=== PATIENT | male | born 1985 | race Caucasian/White ===

== ENCOUNTER → 2021-03-31 15:26 | Outpatient (BNVA) | payer OTHER, SELFPAY | PROVIDERS: Visit Provider Nurse Practitioner Family | DX: Z20.822 Contact with and (suspected) exposure to COVID-19 (principal) | CPT/HCPCS: 87635 ==

== ENCOUNTER → 2021-05-04 15:32 | Outpatient (BNVA) | payer SELFPAY | PROVIDERS: Visit Provider Nurse Practitioner Family | DX: S92.521A Displaced fracture of middle phalanx of right lesser toe(s), initial encounter for closed fracture (principal); W22.8XXA Striking against or struck by other objects, initial encounter; M79.674 Pain in right toe(s); G89.29 Other chronic pain | CPT/HCPCS: 73630 ==

== ENCOUNTER → 2021-05-12 13:47 | Outpatient (BNVA) | payer SELFPAY | PROVIDERS: Referring Provider Nurse Practitioner Family; Visit Provider Podiatrist Foot & Ankle Surgery | DX: M79.671 Pain in right foot (principal) | CPT/HCPCS: 73630 ==

== ENCOUNTER 2023-10-03 09:01 | Emergency (ER) | payer SELFPAY ==
[2023-10-03 09:06] VITALS: BP 151/81; PULSE 98; RESP 18; TEMP 36.8; O2SAT 98; BMI 24.3
[2023-10-03 09:40] LABS: Basophils # 0.1 10^3/uL (0.0-0.1); Basophils % 0.7 %; Eosinophils # 0.2 10^3/uL (0.0-0.8); Eosinophils % 2.5 %; Hematocrit 43.6 % (37-53); Lymphocytes # 2.2 10^3/uL (0.8-4.8); Mean Corpuscular HGB Conc 33.3 g/dL (30-55); Mean Corpuscular Hemoglobin 30.7 pg (27-33); Mean Corpuscular Volume 92.4 fl (82-101); Monocytes # 0.8 10^3/uL (0.2-0.9); Monocytes % 8.9 %; Neutrophils # 5.25 10^3/uL (1.8-7.7); Neutrophils % 61.5 %; Nucleated Red Blood Cells % 0 %; Platelet Count 308 10^3/cmm (157-399); Red Blood Count 4.72 10^6/uL (3.85-5.65); Red Cell Distribution Width 13.6 % (12.1-15.1); White Blood Count 8.53 10^3/uL (3.29-11.43)
[2023-10-03 09:48] LABS: Add Urine Microscopic? NO; Charge for UA Resulting for Rev
--- NOTE | 2023-10-03 09:54 | ED_ITS ---
HPI - Back Pain/Injury 2 General: Chief Complaint: Back Pain/Injury Stated Complaint: abd pain Time Seen by Provider: 10/03/23 09:03 Source: patient Mode of arrival: ambulatory History of Present Illness: 37-year-old male presents emergency room with right flank pain. He denies any dysuria urgency or frequency pain is worse when he twists or bends. He denies any hematuria no fever sweats or chills. No precipitating trauma MD elicited complaint: back pain PFSH ED 2 PFSH: Social History Smoking and tobacco/nicotine status: current every day tobacco/nicotine user cigarettes Packs smoked per day: 0.5 Years cigarettes smoked: 20 Second hand smoke exposure: Yes Alcohol intake: current Alcohol intake frequency: holidays/special occasions only Substance/Drug Use: never Lives independently: Yes Household members: significant other Marital status: Life Partner service: No Current occupational status: employed Current occupation: [employer] Current gender identity: Male Special emi needs: No Agree to transfusion: Yes Course 2 Vital Signs: Vital signs: Vital Signs Temperature 98.3 F 10/03/23 09:06 Pulse Rate 90 10/03/23 11:01 Respiratory Rate 16 10/03/23 11:01 Blood Pressure 142/69 10/03/23 11:01 Pulse Oximetry 95 10/03/23 11:01 Oxygen Delivery Me thod Room Air 10/03/23 09:06 MDM - Back Pain/Injury Medical Decision Making Laboratory tests unremarkable urine does not show any sign of blood. Pains is more musculoskeletal in nature and reproducible with twisting and bending. Discharge home with steroid taper anti-inflammatories muscle relaxers. Follow- up with primary care if not improving or worsens or changes. Due to other critical patients present to the emergency room at the time of discharge I was unable to get back into the patient's room to discuss the findings with him. The nurse was able to review them in my stead. We had asked the patient to wait and I would eventually get to them as soon as I had finished with the other patient they were anxious to leave and expressed to the nurse they understood the discharge instructions and were dismissed from the emergency room. Differential Diagnosis Likely strain of lumbar region Medical Records I reviewed the patient's medical records. Labs I reviewed the patient's lab results. 10/03/23 09:31 10/03/23 09: Laboratory Results WBC 8.53 10^3/uL (3.29-11.43) 10/03/23 09: RBC 4.72 10^6/uL (3.85-5.65) 10/03/23 09: Hgb 14.50 g/dL (11.27-16.99) 10/03/23: Hct 43.6 % (37-53) 10/03/23 09: MCV 92.4 fl (82-101) 10/03/23: MCH 30.7 pg (27-33) 10/03/23: MCHC 33.3 g/dL (30-55) 10/03/23: RDW 13.6 % (12.1-15.1) 10/03/23: Plt Count 308 10^3/cmm (157-399) 10/03/23: MPV 9.0 fL (7.4-10.4) 10/03/23 09: Neut % (Auto) 61.5 % 10/03/23 09: Lymph % (Auto) 26.0 % 10/03/23 09: [place] % (Auto) 8.9 % 10/03/23: Eos % (Auto) 2.5 % 10/03/23: Baso % (Auto) 0.7 % 10/03/23: Neut # (Auto) 5.25 10^3/uL (1.8-7.7) 10/03/23: Lymph # (Auto) 2.2 10^3/uL (0.8-4.8) 10/03/23 09: Marathon # (Auto) 0.8 10^3/uL (0.2-0.9) 10/03/23 09: Eos # (Auto) 0.2 10^3/uL (0.0-0.8) 10/03/23 09: Baso # (Auto) 0.1 10^3/uL (0.0-0.1) 10/03/23: Nucleated RBC % (auto) 0 % 10/03/23: Nucleated RBCs # 0.0 /100WBC 10/03/23 09:31 Sodium 135 mmol/L (136-145) L 10/03/23 09:31 Potassium 4.3 mmol/L (3.5-5.1) 10/03/23 09:31 Chloride 99 mmol/L (98-107) 10/03/23 09:31 Carbon Dioxide 26 mmol/L (22-29) 10/03/23 09:31 Anion Gap 14.3 (5-19) 10/03/23 09:31 BUN 18 mg/dL (6-20) 10/03/23 09:31 Creatinine 0.7 mg/dL (0.7-1.2) 10/03/23 09:31 GFR Calculation 126.2 mL/min (90-130) 10/03/23:31 Glucose 107 mg/dL (65-115) 10/03/23 09:31 Calculated Osmolality 282 mOsm/kg (285-295) L 10/03/23:31 Calcium 9.1 mg/dL (8.5-10.5) 10/03/23 09:31 Total Bilirubin 0.2 mg/dL (0.15-1.2) 10/03/23 09:31 AST 18 U/L (0-40) 10/03/23:31 ALT 23 U/L (0-41) 10/03/23 09:31 Alkaline Phosphatase 75 U/L (40-130) 10/03/23 09:31 Total Protein 7.1 g/dL (6.6-8.7) 10/03/23 09:31 Albumin 4.4 g/dL (3.5-5.2) 10/03/23 09:31 Globulin 2.7 g/dL (1.3-4.6) 10/03/23 09:31 Lipase 26 U/L (13-60) 10/03/23 09:31 Urine Color Yellow (Yellow) 10/03/23:37 Urine Appearance Clear (CLEAR) 10/03/23 09:37 Urine pH 6 (5-7) 10/03/23 09:37 Ur Specific Saxon 1.025 (1.005-1.030) 10/03/23 09:37 Urine Protein Neg (Negative) 10/03/23 09:37 Urine Glucose (UA) Norm (Normal) 10/03/23 09:37 Urine Ketones Negative (Negative) 10/03/23 09:37 Urine Blood Neg (Negative) 10/03/23 09:37 Urine Nitrate Negative (Negative) 10/03/23 09:37 Urine Bilirubin Neg (Negative) 10/03/23 09:37 Urine Urobilinogen Norm mg/dL (Negative) 10/03/23 09:37 Ur Leukocyte Esterase Negative (Negative) 10/03/23 09:37 No radiology studies performed this visit Discharge Plan Discharge Patient Disposition: Home Clinical Impression: Strain of lumbar region Condition: Stable Prescriptions: New tizanidine 4 mg tablet 4 mg PO Q6H PRN (Reason: muscle spasticity) Qty: 20 0RF Rx Instructions: do not exceed 3 doses per 24 hrs prednisone 20 mg tablet 20 mg PO TID Qty: 15 0RF Rx Instructions: 1 p.o. 3 times daily x3 days, 1 p.o. twice daily x2 days, 1 p.o. daily x2 days diclofenac sodium 75 mg tablet,delayed release (DR/EC) 75 mg PO Q12H PRN (Reason: pain) Qty: 20 0RF Discharge Orders: Discharge ED (Routine); Ordered 10/03/23 Ordered By: Gerardo Barrientos Discharge Diet: Usual diet Discharge Activity: Resume usual activity Patient Instructions: Opioid Safety, Pain Management Activity Restrictions/Additional Instructions: Thank you for choosing [facility] for your healthcare needs today. Please realize this is an emergency room and that we are providing you with a medical screening exam and this may not be complete and all inclusive of all the testing and or work up that you may need to determine your ailment or severity of your illness. It is very important that you follow up as instructed or that you return to the Emergency Department should you have concerns or if your condition changes or worsens in any way. You are seen today with right flank and back pain. Your white count is normal laboratory test does not show any sign of infection. Coding Level of Care Code ED Ref[employer]eration Systems Installer for Brice Workman
[2023-10-03 09:56] LABS: Alanine Aminotransferase 23 U/L (0-41); Albumin Level 4.4 g/dL (3.5-5.2); Alkaline Phosphatase 75 U/L (40-130); Anion Gap 14.3 (5-19); Aspartate Amino Transferase 18 U/L (0-40); Blood Urea Nitrogen 18 mg/dL (6-20); Calcium 9.1 mg/dL (8.5-10.5); Carbon Dioxide 26 mmol/L (22-29); Chloride 99 mmol/L (98-107); Globulin 2.7 g/dL (1.3-4.6); Glomerular Filtration Rate 126.2 mL/min (90-130); Glucose 107 mg/dL (65-115); Lipase 26 U/L (13-60); Osmolality Calculated 282 mOsm/kg (285-295); Potassium 4.3 mmol/L (3.5-5.1); Sodium 135 mmol/L (136-145); Total Bilirubin 0.2 mg/dL (0.15-1.2); Total Protein 7.1 g/dL (6.6-8.7)
[2023-10-03 10:16] LABS: Bilirubin Urine Neg (Negative); Blood Urine Neg (Negative); Glucose Urine UA Norm (Normal); Ketones Urine Negative (Negative); Leukocyte Esterase Urine Negative (Negative); Nitrate Urine Negative (Negative); Protein Urine Neg (Negative); Specific Gravity, Urine 1.025 (1.005-1.030); Urine Appearance Clear (CLEAR); Urine Color Yellow (Yellow); Urobilinogen Urine Norm (Negative); pH Urine 6 (5-7)
[2023-10-03 11:01] VITALS: BP 142/69; PULSE 90; RESP 16; O2SAT 95
== END 2023-10-03 11:09 | disposition home or self-care (01) ==
PROVIDERS: Emergency Provider Family Medicine
DX: S39.012A Strain of muscle, fascia and tendon of lower back, initial encounter (principal); F17.210 Nicotine dependence, cigarettes, uncomplicated; X58.XXXA Exposure to other specified factors, initial encounter
CPT/HCPCS: 36415; 80053; 81003; 83690; 85025; 99283

== ENCOUNTER 2024-09-07 01:08 | Emergency (ER) | payer SELFPAY ==
[2024-09-07] VITALS (10 sets, daily range): BP systolic 127–159; BP diastolic 73–86; PULSE 90–97; RESP 16; O2SAT 92–99
[2024-09-07] MEDS: HYDROmorphone 1 mg/mL INJ 1 mL IVP ×2 (01:47→03:06)
[2024-09-07] MEDS: ondansetron 2 mg/ML SDV 2 mL 4 MG IVP (01:49)
[2024-09-07] MEDS: ceFAZolin 2,000 mg SDV 2000 MG (01:58)
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
[2024-09-07] MEDS: sodium chloride 0.9% (100 ml) 100 ML 200 ML (02:04)
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
== END 2024-09-07 04:10 | disposition home or self-care (01) ==
PROVIDERS: Emergency Provider Emergency Medicine
DX: S62.634A Displaced fracture of distal phalanx of right ring finger, initial encounter for closed fracture (principal); S62.636A Displaced fracture of distal phalanx of right little finger, initial encounter for closed fracture; S61.216A Laceration without foreign body of right little finger without damage to nail, initial encounter; S61.211A Laceration without foreign body of left index finger without damage to nail, initial encounter; S62.631A Displaced fracture of distal phalanx of left index finger, initial encounter for closed fracture; W39.XXXA Discharge of firework, initial encounter; F17.210 Nicotine dependence, cigarettes, uncomplicated
CPT/HCPCS: 73130; 96374; 96375; 96376; 99284; J0690; J1171; J2405

== ENCOUNTER 2024-09-10 19:49 | Emergency (ER) | payer SELFPAY ==
[2024-09-10 20:08] VITALS: BP 123/83; PULSE 100; RESP 16; TEMP 36.7; O2SAT 100
[2024-09-10] MEDS: HYDROcodone-acetaminophen 7.5-325 mg Tablet 1 TAB PO (23:38)
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
== END 2024-09-11 00:30 | disposition home or self-care (01) ==
PROVIDERS: Emergency Provider Physician Assistant
DX: Z48.01 Encounter for change or removal of surgical wound dressing (principal); F17.210 Nicotine dependence, cigarettes, uncomplicated
CPT/HCPCS: 12345; 99283